=== PATIENT | male | born 1950 | race Caucasian/White ===

== ENCOUNTER 2021-11-06 17:05 | Emergency (ER) | payer OTHER ==
[2021-11-06 17:51] VITALS: BP 123/75; RESP 18; TEMP 98.9; BMI 23.7
[2021-11-06] MEDS ORDERED: BEBTELOVIMAB (EUA) 175 MG/2 ML VIAL IVPUSH ONE (18:18)
[2021-11-06 21:36] VITALS: PULSE 88
== END 2021-11-06 21:36 | disposition home or self-care (01) ==
LOC: JER 17:05
PROC: 3E033GC Introduction of Other Therapeutic Substance into Peripheral Vein, Percutaneous Approach (ICD-10-PCS; principal; 2021-11-06)
DX: U07.1 COVID-19 (principal)
CPT/HCPCS: 96374; 99284-25; M0222; Q0222

== ENCOUNTER 2022-04-24 20:42 | Emergency (ER) | payer OTHER ==
[2022-04-24 20:46] VITALS: RESP 18; BMI 22.3
[2022-04-24] MEDS ORDERED: SODIUM CHLORIDE 0.9% 500 ML INFUS.BAG IV ONE (21:58)
[2022-04-24] MEDS ORDERED: ACETAMINOPHEN 1000 MG/100 ML BAG IVPB ONE (22:21)
[2022-04-24] MEDS ORDERED: ACETAMINOPHEN INJECTION 100 ML IVPB ONE (22:30)
[2022-04-24 22:35] LABS: BASO % 0.5 % (0-2.0); HEMATOCRIT 40.8 % (35.4-49); HEMOGLOBIN 13.4 GM/dL (11.7-16.9); LYMPH % 9.7 % (8-40); MCH 27.3 pg (25.7-33.7); MCHC 32.9 g/dl (32.0-35.9); MEAN CELL VOLUME 83.2 fl (80-96); MEAN PLT VOLUME 8.7 fl (7.5-11.1); MONO % 4.1 % (3.8-10.2); NEUT % 84.7 % (42.8-82.8); PLATELET COUNT 171 10^3/uL (134-434); RBC 4.91 M/mm3 (4.00-5.60); RDW 13.5 % (11.9-15.9); WHITE BLOOD COUNT 5.6 K/mm3 (4.0-10.0)
[2022-04-24 23:04] LABS: ALBUMIN 3.9 g/dl (3.4-5.0); CALCIUM 8.8 mg/dL (8.5-10.1)
[2022-04-24 23:05] LABS: BLOOD UREA NITROGEN 19.1 mg/dL (7-18)
[2022-04-24 23:08] LABS: CREATININE 1.4 mg/dL (0.55-1.3)
[2022-04-24 23:09] LABS: BILIRUBIN,TOTAL 0.5 mg/dL (0.2-1); TOT PROT 6.8 g/dl (6.4-8.2)
[2022-04-25] MEDS ORDERED: SODIUM CHLORIDE 0.9% 500 ML INFUS.BAG IV ONE (00:12)
[2022-04-25 01:34] LABS: EPI CELLS 15 /uL (0-25.1); HYALINE CASTS 2 /uL (0-3.1); PH,URINE 5.5 (5.0-8.0); URINE APPEARANCE CLOUDY; URINE BACTERIA 46 /uL (0-1359); URINE BILIRUBIN NEGATIVE (NEGATIVE); URINE COLOR YELLOW; URINE GLUCOSE (UA) NEGATIVE (NEGATIVE); URINE KETONE NEGATIVE (NEGATIVE); URINE LEUK ESTERASE NEGATIVE (NEGATIVE); URINE NITRITE NEGATIVE (NEGATIVE); URINE PROTEIN 1+ (NEGATIVE); URINE RBC 990 /uL (0-23.9); URINE UROBILINOGEN 0.2 mg/dL (0.2-1.0); URINE WBC 37 /uL (0-25.8)
[2022-04-25 02:30] VITALS: BP 140/78; PULSE 68
== END 2022-04-25 02:30 | disposition home or self-care (01) ==
LOC: JER 20:42
PROC: 3E033GC Introduction of Other Therapeutic Substance into Peripheral Vein, Percutaneous Approach (ICD-10-PCS; principal; 2022-04-24)
DX: R10.84 Generalized abdominal pain (principal); R31.9 Hematuria, unspecified
CPT/HCPCS: 36415; 74177-TC; 80053; 81003; 85025; 87086; 96374; 99285-25

== ENCOUNTER 2022-07-05 10:54 | Emergency (ER) | payer OTHER ==
[2022-07-05 11:02] VITALS: BP 131/77; PULSE 61; RESP 18; TEMP 98; BMI 24.0
== END 2022-07-05 17:37 | disposition home or self-care (01) ==
LOC: JERFT 10:54 → JER 10:54 → JERFT 17:37
DX: R21 Rash and other nonspecific skin eruption (principal)
CPT/HCPCS: 99283-25

== ENCOUNTER 2022-09-05 10:01 | Emergency (ER) | payer OTHER ==
[2022-09-05 10:14] VITALS: BMI 23.7
[2022-09-05] MEDS ORDERED: PIPERACILLIN/TAZOB 4.5 GM 4.5 GM in DEXTROSE 5%-WATER 100 ML IVPB ONE (13:14)
[2022-09-05] MEDS ORDERED: VANCOMYCIN/WATER 1,250 MG/250 ML BAG (RESTRICTED TO ID ONLY) IVPB ONE (13:14)
[2022-09-05] MEDS ORDERED: PIPERACILLIN/TAZOB 4.5 GM 4.5 GM/100 ML BAG IVPB ONE (13:35)
[2022-09-05] MEDS ORDERED: VANCOMYCIN/WATER 1250 MG 1,250 MG/250 ML BAG IVPB ONE (13:35)
[2022-09-05 14:54] LABS: BASO % 0.7 % (0-2.0); EOS % 6.2 % (0-4.5); HEMATOCRIT 39.1 % (35.4-49); HEMOGLOBIN 12.5 GM/dL (11.7-16.9); LYMPH % 44.3 % (8-40); MCH 26.5 pg (25.7-33.7); MCHC 32.1 g/dl (32.0-35.9); MEAN CELL VOLUME 82.6 fl (80-96); MEAN PLT VOLUME 9.3 fl (7.5-11.1); MONO % 7.9 % (3.8-10.2); NEUT % 40.9 % (42.8-82.8); PLATELET COUNT 206 10^3/uL (134-434); RBC 4.73 M/mm3 (4.00-5.60); RDW 13.6 % (11.9-15.9); WHITE BLOOD COUNT 2.9 K/mm3 (4.0-10.0)
[2022-09-05 14:58] VITALS: BP 97/66; PULSE 72; RESP 18; TEMP 97.9
[2022-09-05 15:17] LABS: POTASSIUM 3.7 mmol/L (3.5-5.1)
[2022-09-05 15:19] LABS: ALBUMIN 3.7 g/dl (3.4-5.0); BLOOD UREA NITROGEN 15.4 mg/dL (7-18); CALCIUM 8.8 mg/dL (8.5-10.1)
[2022-09-05 15:23] LABS: CREATININE 1.1 mg/dL (0.55-1.3)
[2022-09-05 15:24] LABS: BILIRUBIN,TOTAL 0.5 mg/dL (0.2-1); TOT PROT 6.7 g/dl (6.4-8.2)
== END 2022-09-05 15:18 | disposition short-term general hospital (02) ==
LOC: JER 10:01
DX: H02.841 Edema of right upper eyelid (principal); H57.11 Ocular pain, right eye; H02.842 Edema of right lower eyelid; H57.89 Other specified disorders of eye and adnexa; Z20.822 Contact with and (suspected) exposure to COVID-19
CPT/HCPCS: 36415; 80053; 85025; 96365; 96372; 99285-25; C9803-CS; U0003; U0005

== ENCOUNTER 2022-12-22 15:15 | Emergency (ER) | payer OTHER ==
[2022-12-22 15:45] VITALS: BP 115/77; PULSE 65; RESP 17; TEMP 97.8; BMI 20.9
== END 2022-12-22 18:17 | disposition home or self-care (01) ==
LOC: JERFT 15:15
DX: H92.02 Otalgia, left ear (principal); H66.92 Otitis media, unspecified, left ear
CPT/HCPCS: 99283-25

== ENCOUNTER 2023-08-20 08:32 | Emergency (ER) | payer OTHER ==
[2023-08-20 08:52] VITALS: BP 99/61; PULSE 64; RESP 18; TEMP 98.2; BMI 20.9
[2023-08-20] MEDS ORDERED: DEXAMETHASONE SOD PHOSPHATE 10 MG/1 ML VIAL ONE (10:26)
[2023-08-20] MEDS: DEXAMETHASONE SOD PHOSPHATE 10 MG/1 ML VIAL IM ONE (10:29)
== END 2023-08-20 13:30 | disposition home or self-care (01) ==
LOC: JERFT 08:32
PROC: 3E023GC Introduction of Other Therapeutic Substance into Muscle, Percutaneous Approach (ICD-10-PCS; principal; 2023-08-20)
DX: R21 Rash and other nonspecific skin eruption (principal)
CPT/HCPCS: 96372; 99284-25; J1100

== ENCOUNTER 2024-01-01 15:13 | Inpatient (IN) | payer OTHER ==
[2024-01-01 16:27] LABS: BASO % 0.7 % (0-2.0); EOS % 4.1 % (0-4.5); HEMATOCRIT 22.1 % (35.4-49); LYMPH % 27.8 % (8-40); MEAN PLT VOLUME 8.4 fl (7.5-11.1); MONO % 9.2 % (3.8-10.2); NEUT % 58.2 % (42.8-82.8); PLATELET COUNT 248 10^3/uL (134-434); RBC 3.57 M/mm3 (4.00-5.60); RDW 22.4 % (11.9-15.9); RETICULOCYTES 2.06 % (0.5-1.5); WHITE BLOOD COUNT 2.9 K/mm3 (4.0-10.0)
[2024-01-01 16:30] LABS: PROTHROMBIN TIME (PATIENT) 11.3 SEC (9.7-13.0)
[2024-01-01 16:33] LABS: ACTIVATED PTT 30.1 SECONDS (25.2-36.5)
[2024-01-01 16:37] LABS: MCH 16.7 pg (25.7-33.7)
[2024-01-01 16:38] LABS: POTASSIUM 4.6 mmol/L (3.5-5.1)
[2024-01-01 16:40] LABS: CALCIUM 8.2 mg/dL (8.5-10.1)
[2024-01-01 16:41] LABS: ALBUMIN 3.5 g/dl (3.4-5.0); BLOOD UREA NITROGEN 15.7 mg/dL (7-18)
[2024-01-01 16:45] LABS: BILIRUBIN,TOTAL 0.4 mg/dL (0.2-1); TOT PROT 6.6 g/dl (6.4-8.2)
[2024-01-01 17:41] LABS: HIV INTERPRETATION NEGATIVE (NEGATIVE)
[2024-01-01] MEDS ORDERED: PANTOPRAZOLE SODIUM 40 MG/100 ML BAG IVPB ONE (18:14)
[2024-01-01] MEDS: PANTOPRAZOLE SODIUM 40 MG VIAL IVPUSH SCH (18:17)
[2024-01-01 18:18] LABS: URINE APPEARANCE CLEAR; URINE BILIRUBIN NEGATIVE (NEGATIVE); URINE COLOR YELLOW; URINE GLUCOSE (UA) NEGATIVE (NEGATIVE); URINE KETONE NEGATIVE (NEGATIVE); URINE LEUK ESTERASE NEGATIVE (NEGATIVE); URINE NITRITE NEGATIVE (NEGATIVE); URINE PROTEIN NEGATIVE (NEGATIVE); URINE UROBILINOGEN 0.2 mg/dL (0.2-1.0)
[2024-01-01 19:18] LABS: ANISOCYTOSIS 3+; MACROCYTOSIS 0; OVALOCYTE 1+
[2024-01-01] MEDS ORDERED: PANTOPRAZOLE SODIUM 40 MG VIAL ONE (22:22)
[2024-01-01 23:55] VITALS: BMI 21.4
[2024-01-02] MEDS: LEVOTHYROXINE NA 100 MCG TABLET (FP) PO SCH (06:33)
[2024-01-02 07:49] LABS: BASO % 0.7 % (0-2.0); EOS % 1.1 % (0-4.5); HEMATOCRIT 29.5 % (35.4-49); HEMOGLOBIN 8.8 GM/dL (11.7-16.9); LYMPH % 13.5 % (8-40); MCH 20.4 pg (25.7-33.7); MCHC 29.8 g/dl (32.0-35.9); MEAN CELL VOLUME 68.3 fl (80-96); MEAN PLT VOLUME 8.6 fl (7.5-11.1); MONO % 4.7 % (3.8-10.2); PLATELET COUNT 207 10^3/uL (134-434); RBC 4.31 M/mm3 (4.00-5.60); RDW 26.9 % (11.9-15.9); WHITE BLOOD COUNT 6.1 K/mm3 (4.0-10.0)
[2024-01-02 08:10] LABS: POTASSIUM 4.1 mmol/L (3.5-5.1)
[2024-01-02 08:15] LABS: CALCIUM 8.3 mg/dL (8.5-10.1)
[2024-01-02 08:16] LABS: ALBUMIN 3.3 g/dl (3.4-5.0); BLOOD UREA NITROGEN 11.2 mg/dL (7-18)
[2024-01-02 08:18] LABS: CREATININE 0.9 mg/dL (0.55-1.3)
[2024-01-02 08:20] LABS: BILIRUBIN,TOTAL 2.3 mg/dL (0.2-1); TOT PROT 6.1 g/dl (6.4-8.2)
[2024-01-02] MEDS: PATIENT'S OWN MEDICATION (NON-FORMULARY) (Latanoprost/Pf [Latanoprost 0.005% Eye Drop] 7.5 OU SCH (09:12)
[2024-01-02] MEDS: DEXAMETH AD SCH (09:14)
[2024-01-02] MEDS: CIPROFLOXACIN HCL AD SCH (09:14)
[2024-01-02] MEDS: [UNRECOGNIZED DRUG - OTHER] AD SCH (09:14)
[2024-01-02 12:59] LABS: BASO % 1.5 % (0-2.0); EOS % 2.1 % (0-4.5); HEMOGLOBIN 8.7 GM/dL (11.7-16.9); LYMPH % 13.3 % (8-40); MCH 20.3 pg (25.7-33.7); MCHC 30.1 g/dl (32.0-35.9); MEAN CELL VOLUME 67.4 fl (80-96); MEAN PLT VOLUME 8.4 fl (7.5-11.1); MONO % 8.8 % (3.8-10.2); NEUT % 74.3 % (42.8-82.8); PLATELET COUNT 210 10^3/uL (134-434); RDW 26.8 % (11.9-15.9); WHITE BLOOD COUNT 5.1 K/mm3 (4.0-10.0)
[2024-01-02] MEDS: QUEtiapine FUMARATE 25 MG TABLET PO SCH (21:47)
[2024-01-02] MEDS: ROSUVASTATIN CA 20 MG TABLET PO SCH (21:47)
[2024-01-03] MEDS: IRON SUCROSE INJECTION 200 MG in SODIUM CHLORIDE 100 ML IVPB ONE (10:29)
[2024-01-03] MEDS: PEG 3350/NA SULF BICARB CL/KCL 4000 ML SOLN.RECON PO ONE (16:36)
[2024-01-03] MEDS: BISACODYL 5 MG TABLET.DR (FP) PO ONE (16:36)
[2024-01-04 09:32] LABS: BASO % 1.2 % (0-2.0); EOS % 3.3 % (0-4.5); HEMATOCRIT 32.8 % (35.4-49); HEMOGLOBIN 9.6 GM/dL (11.7-16.9); LYMPH % 24.3 % (8-40); MCH 20.4 pg (25.7-33.7); MCHC 29.4 g/dl (32.0-35.9); MEAN CELL VOLUME 69.3 fl (80-96); MEAN PLT VOLUME 9.6 fl (7.5-11.1); MONO % 10.5 % (3.8-10.2); NEUT % 60.7 % (42.8-82.8); PLATELET COUNT 238 10^3/uL (134-434); RBC 4.73 M/mm3 (4.00-5.60); RDW 27.6 % (11.9-15.9)
[2024-01-04 09:46] LABS: INR 1.07 (0.83-1.09); PROTHROMBIN TIME (PATIENT) 12.3 SEC (9.7-13.0)
[2024-01-04 09:52] LABS: POTASSIUM 3.4 mmol/L (3.5-5.1)
[2024-01-04 10:10] LABS: ALBUMIN 3.6 g/dl (3.4-5.0); BLOOD UREA NITROGEN 11.1 mg/dL (7-18); CALCIUM 8.6 mg/dL (8.5-10.1)
[2024-01-04 10:14] LABS: BILIRUBIN,TOTAL 0.7 mg/dL (0.2-1); CREATININE 0.9 mg/dL (0.55-1.3)
[2024-01-04 10:15] LABS: TOT PROT 6.6 g/dl (6.4-8.2)
[2024-01-04] MEDS: FERROUS SO4 325 MG TABLET (FP) PO SCH (11:47)
[2024-01-04] MEDS: IRON SUCROSE INJECTION 200 MG in SODIUM CHLORIDE 100 ML IVPB ONE (12:29)
[2024-01-05] MEDS: PANTOPRAZOLE 40 MG TABLET PO SCH (09:16)
[2024-01-05] MEDS: POTASSIUM CHLORIDE ORAL LIQUID 20 MEQ/15 ML PO ONE (11:07)
[2024-01-05 15:24] VITALS: BP 123/71; PULSE 69; RESP 20; TEMP 98.2
== END 2024-01-05 16:42 | disposition home or self-care (01) | DRG 378 ==
LOC: JER 15:13 → JERBED 17:53 → J4W 23:45
PROVIDERS: ADMIT Internal Medicine; ATTEND Internal Medicine
PROC: 30233N1 Transfusion of Nonautologous Red Blood Cells into Peripheral Vein, Percutaneous Approach (ICD-10-PCS; principal; 2024-01-01)
PROC: 0DB68ZX Excision of Stomach, Via Natural or Artificial Opening Endoscopic, Diagnostic (ICD-10-PCS; 2024-01-04)
PROC: 0DBM8ZX Excision of Descending Colon, Via Natural or Artificial Opening Endoscopic, Diagnostic (ICD-10-PCS; 2024-01-04)
PROC: 0DB98ZX Excision of Duodenum, Via Natural or Artificial Opening Endoscopic, Diagnostic (ICD-10-PCS; 2024-01-04)
DX: K92.2 Gastrointestinal hemorrhage, unspecified (principal); D62 Acute posthemorrhagic anemia; F31.9 Bipolar disorder, unspecified; E03.9 Hypothyroidism, unspecified; I10 Essential (primary) hypertension; I25.10 Atherosclerotic heart disease of native coronary artery without angina pectoris; H40.9 Unspecified glaucoma; E78.5 Hyperlipidemia, unspecified; K57.90 Diverticulosis of intestine, part unspecified, without perforation or abscess without bleeding; K64.8 Other hemorrhoids; K63.5 Polyp of colon; K29.50 Unspecified chronic gastritis without bleeding; D12.4 Benign neoplasm of descending colon
CPT/HCPCS: 36415; 36430; 71045-TC-FY; 80048; 80053; 81003; 82272; 82728; 83540; 83550; 84484; 85025; 85045; 85610; 85730; 86803; 86850; 86900; 86901; 86922; 87086; 87389; 87635; 88305-TC; 88342-TC; 93005; 93010; 99285-25; J1756; P9058